=== PATIENT | female | born 1960 | race Caucasian/White ===

== ENCOUNTER 2016-07-27 10:49 | Observation (INO) | payer OTHER ==
[2016-07-27] MEDS ORDERED: ONDANSETRON ODT 4 MG TAB.RAPDIS ONE ×3 (11:15→20:46)
[2016-07-27] MEDS ORDERED: FENTANYL 250 MCG/5 ML VIAL ONE (11:17)
[2016-07-27] MEDS ORDERED: HYDROmorphone HCL 1 MG/ML SYR ONE ×2 (11:19→12:38)
--- NOTE | 2016-07-27 12:19 | CT REPORT ---
HISTORY: Fall Neck pain. COMPARISON: None. TECHNIQUE: This examination was performed using automated exposure control, adjustment of mA or kV according to patient size, and/or use of iterative reconstruction technique. Axial thin section images obtained f rom skull base through head of the clavicles. Sagittal and coronal reformat images obtained. FINDINGS: SPINE: Cervical vertebral body heights are maintained. There is no compression deformity. The alignment is maintained. There are sub no subluxation or displacement. The odontoid and ring of C1 are intact. Eth e atlantoaxial and atlantooccipital alignment are maintained. T the posterior bony elements are intac t. The facets are in alignment. There is no prevertebral soft tissue swelling. There is degenerative disease with disc space and, endplate sclerosis and marginal osteophytes at C4- 5, C5-6 and C6-7. The changes are most severe at C5-6. The central canal and neural foramina are adequately maintained. SOFT TISSUES: Is no cervical mass or gross pathologic adenopathy. IMPRESSION: 1. Degenerative disc disease at C4-5, C5-6 and C6-7. Changes are most marked at C6 5-C6. Final Electronic Signature: This report was electronically signed by Teddy Peters MD on 07/27/2016 12 :17 PM. [facility] /
[2016-07-27] MEDS ORDERED: ONDANSETRON HCL 4 MG/2 ML VIAL ONE ×2 (12:38→14:42)
--- NOTE | 2016-07-27 13:26 | CT REPORT ---
EXAM:CAT SCAN; UPPER EXTR W/O [id number] INDICATION: Trauma. Pain. COMPARISON:None TECHNIQUE:Axial images were obtained through the left elbow and were reconstructed to 2 mm. Multiplan ar reformations were created. Radiation dose reduction technique was utilized. FINDINGS: The study is limited by artifact from overlying metal in the immobilizing device. There leonel ears to be a joint effusion, with displacement of the anterior fat pad. There may be a nondisplaced f racture of the radial neck, though this is not certain. The proximal ulna and distal humerus appear i ntact. There are no bony lesions or erosions. There does appear to be mild degenerative disease of th e humeral ulnar articulation. IMPRESSION:Limited study due to artifact from overlying metal in the immobilizing device. Probable melissa int effusion, with suspicion for nondisplaced radial neck fracture. Mild degenerative disease of the humeral ulnar articulation. This report was discussed with Dr. Frederick on 07/27/2016 at 1:10 PM. He indicated he would likely repeat the CT images after replacing the immobilizer with a fiberglass cast. An addendum will be created wh en those images are obtained. Final Electronic Signature: This report was electronically signed by Jose Palomo MD on 07/27/2016 1:23 PM. [facility] /
[2016-07-27] MEDS ORDERED: FENTANYL 100 MCG/2 ML VIAL ONE (14:08)
[2016-07-27] MEDS ORDERED: LORazepam 0.5 MG TABLET ONE (15:22)
[2016-07-27] MEDS ORDERED: HOME MEDICATION LIST NEEDED 1 EA EACH MC ONE (16:28)
--- NOTE | 2016-07-27 16:58 | ER PHYSICIAN DOCUMENTATION ---
Physician Documentation [facility] Name:Jeni Garza Age:55 yrs Sex:Female :1960 Arrival Date:07/27/2016 Time:10:49 Bed6 Private MD: Krish Mendenhall Disposition: 07/27/16 16:33 Admit ordered for Praful Dixon. Preliminary diagnosis are Radial Head Fracture - ; Acute ,possible occult, Upper Extremity Pain - : Intractable, Nausea - : Intractable. - Bed requested for Medical/Surgical. - Condition is Fair. - Problem is new. - Symptoms have improved. 23 HR OBS Yes HPI: 07/27 11:00 This 55 yrs old Female presents to ER via EMS with complaints of Fall Injury. cd 11:00 Details of fall: The patient fell from an upright position, while walking, slipped on cd ice and hit her car landing on her left elbow. Onset: The symptom(s)/episode began/occurred acutely, just prior to arrival. Associated injuries: The patient sustained neck injury, pain, left elbow and anterior aspect of left shoulder, contusion, decreased range of motion, painful injury, swelling. Associated signs and symptoms: Pertinent positives: nausea, Pertinent negatives: abdominal pain, chest pain, confusion, headache, memory problems, pelvic pain, shortness of breath, vomiting, Loss of consciousness: the patient experienced no loss of consciousness. Severity of symptoms: At their worst the symptoms were severe, a " 9" out of "10", in the emergency department the symptoms are unchanged, a " 9" out of "10", Patient received 50 mcg Fentanyl IN and 50 mcg Fentanyl IV per EMS INTERNET MARKETING DIRECTOR.. The patient has not experienced similar symptoms in the past. Historical: - Allergies: No known drug Allergies; - Home Meds: 1. multivitamin oral 2. niacin 500 mg oral tab 3. Metformin Oral - PMHx: borderline diabetes; right eye trauma; left wrist injury; - PSHx: Cholecysectomy; Hysterectomy; right breat tumor removal; left carpal tunnel; left wrist tendon surgery; - Tetanus: < 10 years. - Ebola Screening: : Patient negative for fever greater than or equal to 101.5 degrees Fahrenheit, and additional compatible Ebola Virus Disease symptoms. Patient denies exposure to infectious person. Patient denies travel to an Ebola-affected area in the 21 days before illness onset. No symptoms or risks identified at this time. . - Immunization history: Pneumococcal vaccine is not up to date, Patient has never been vaccinated Flu Vaccine None. - Social history: Smoking status: Patient states was never smoker of tobacco. ROS: 13:15 ENT: Negative for injury, pain, epistaxis and discharge. cd Cardiovascular: Negative for chest pain, palpitations, edema and pleuritic pain. 13:15 Respiratory: Negative for shortness of breath, dyspnea on exertion, cough, sputum cd production, wheezing, hemoptysis and pleuritic chest pain. Back: Negative for injury, pain or muscle spasms. Skin: Negative for injury, rash, itching and discoloration. 13:15 Neuro: Negative for headache, weakness, numbness, tingling, and seizure. 13:15 Constitutional: Negative for chills, fever, poor PO intake. 13:15 Neck: Positive for pain at rest, bony tenderness. 13:15 Abdomen/GI: Positive for nausea, anorexia, Negative for abdominal pain, vomiting. 13:15 MS/extremity: Positive for injury or acute deformity, decreased range of motion, paresthesias, swelling, tenderness, of the left elbow and anterior aspect of left shoulder. 13:15 Psych: Positive for anxiety. 13:15 All other systems are negative. Exam: Head/Face: Normocephalic, atraumatic. Eyes: Pupils equal round and reactive to light, extra-ocular motions intact. Lids and lashes normal. Conjunctiva and sclera are non-icteric and not injected. Cornea within normal limits. Periorbital areas with no swelling, redness, or edema. ENT: Nares patent. No nasal discharge, no septal abnormalities noted. Tympanic membranes are normal and external auditory canals are clear. Oropharynx with no redness, swelling, or masses, exudates, or evidence of obstruction, uvula midline. Mucous membranes moist. Chest/axilla: Normal chest wall appearance and motion. Nontender with no deformity. No lesions are appreciated. Cardiovascular: Regular rate and rhythm with a normal S1 and S2. No gallops, murmurs, or rubs. Normal PMI, no JVD. No pulse deficits. Respiratory: Lungs have equal breath sounds bilaterally, clear to auscultation and percussion. No rales, rhonchi or wheezes noted. No increased work of breathing, no retractions or nasal flaring. Abdomen/GI: Soft, non-tender, with normal bowel sounds. No distension or tympany. No guarding or rebound. No evidence of tenderness throughout. Back: No spinal tenderness. No costovertebral tenderness. Full range of motion. Skin: Warm, dry with normal turgor. Normal color with no rashes, no lesions, and no evidence of cellulitis. 13:15 Neuro: Awake and alert, GCS 15, oriented to person, place, time, and situation. cd Cranial nerves II-XII grossly intact. Motor strength 5/5 in all extremities. Sensory grossly intact. Cerebellar exam normal. Normal gait. 13:15 Constitutional: The patient appears alert, awake, non-diaphoretic, non-toxic, well developed, well nourished, anxious, in obvious distress, severely distressed, pale. 13:15 Neck: C-spine: C-collar placed INTER[employer] MARKETING DIRECTOR, vertebral tenderness, that is moderate, appreciated at C2 and C3. 13:15 Musculoskeletal/extremity: Extremities: grossly normal except: noted in the anterior aspect of left shoulder: decreased ROM, tenderness, noted in the left elbow: decreased ROM, pain, swelling, no evidence of deformity, ecchymosis, ROM: limited passive range of motion due to pain, Circulation is intact in all extremities. Sensation intact. 13:15 Neuro: Orientation: is normal, Mentation: is normal, Cranial nerves: CN II- XII are normal as tested, Motor: moves all fours, Sensation: tingling, that is moderate, of the left arm. Vital Signs: 10:50 BP 159 / 90; Pulse 80; Resp 18; Temp 98.0(O); Pulse Ox 88% on R/A; Weight 74.84 kg; sj Height 5 ft. 3 in. (160.02 cm); Pain 5/10; 12:15 BP 171 / 82; Pulse 74; Pulse Ox 97% on 2 lpm NC; Pain 6/10; sj 13:00 BP 176 / 90; Pulse 69; Resp 12; Pulse Ox 93% on 1 lpm NC; Pain 3/10; sj 13:54 BP 145 / 81; Pulse 63; Resp 16; Pulse Ox 99% on 2 lpm NC; Pain 6/10; sj 14:32 BP 147 / 72; Pulse 73; Resp 14; Pulse Ox 91% on 1 lpm NC; Pain 3/10; sj 14:45 BP 132 / 58; Pulse 70; Pulse Ox 89% on R/A; sj 14:45 BP 131 / 74; Pulse 69; Resp 16; Pulse Ox 97% ; sj 10:50 Body Mass Index 29.23 (74.84 kg, 160.02 cm) sj [place] Coma Score: 13:15 Eye Response: spontaneous(4). Verbal Response: oriented(5). Motor Response: obeys cd commands(6). Total: 15. MDM: 11:00 Data interpreted: Pulse oximetry: on room air is 90 %. Interpretation: acceptable. cd 11:05 Differential diagnosis: contusion, fracture, sprain, strain, Dislocation. cd 11:15 Data reviewed: vital signs, nurses notes, EMS record, old medical records, and as a cd result, I will continue to observe the patient, order radiologic studie(s), CT scan, plain X-ray(s), administer IV fluids, NS bolus, NS maintenence, prescribe pain medication, Dilaudid, and Zofran. 11:31 Patient medically screened. cd 16:30 Counseling: I had a detailed discussion with the patient and/or guardian regarding: the cd historical points, exam findings, and any diagnostic results supporting the discharge/admit diagnosis, radiology results, the need for further work-up and treatment in the hospital. Physician consultation: Praful Dixon DO was called at 16:32, was contacted at 16:32, regarding admission, to the floor, consult, patient's condition, need to evaluate the patient as soon as possible, and will see patient in inpatient room, shortly, later today. Admission orders: after a detailed discussion of the patient's condition and case, the admit orders are written by me. 16:35 Response to treatment: the patient's symptoms have markedly improved after treatment, cd but has continued pain, nausea and anxiety and cannot maintain her O2 sat above 90% with Oxygen. She will be admitted for observation and Orthopedic Consultation., and as a result, I will admit patient. 07/27 12:20 Order name: CAT SCAN; CERVICAL [id number]; Complete Time: 17:46 EDMS 07/27 17:45 Interpretation: Normal Except: No fracture / + DDD. cd 07/27 13:26 Order name: CAT SCAN; UPPER EXTR W/O [id number]; Complete Time: 17:46 EDMS 07/27 17:46 Interpretation: See report. cd 07/27 11:05 Order name: Ice Packs; Complete Time: 11:08 tg Dispensed Medications: 10:57 Drug: Dilaudid 0.5 mg; Route: IVP; Site: left hand; sj 15:17 Follow up: Response: Pain is decreased sj 11:29 Drug: Dilaudid 0.5 mg; Route: IVP; Site: left hand; sj 15:17 Follow up: Response: Pain is decreased sj 11:30 Drug: NS 0.9% 1000 ml; Route: IV; Rate: bolus; Site: left hand; sj 15:19 Follow up: IV Status: Completed infusion; IV Intake: 1000ml sj 12:31 Drug: Zofran 4 mg; Route: IVP; Infused Over: 2 mins; Site: left hand; sj 15:16 Follow up: Response: Nausea is decreased sj 12:31 Drug: Dilaudid 0.5 mg; Route: IVP; Site: left hand; sj 15:17 Follow up: Response: Pain is decreased sj 12:57 Drug: Dilaudid 0.5 mg; Route: IVP; Site: left hand; sj 15:18 Follow up: Response: Pain is decreased sj 14:06 Drug: fentaNYL (PF) 50 mcg; Route: IVP; Site: left hand; sj 15:18 Follow up: Response: Pain is decreased sj 14:35 Drug: Zofran 4 mg; Route: IVP; Infused Over: 2 mins; Site: left hand; sj 15:17 Follow up: Response: Nausea is decreased sj 15:15 Drug: Ativan 0.5 mg; Route: PO; sj 16:33 Follow up: Response: No adverse reaction tg 15:55 Drug: Zofran 4 mg; Route: PO; tg 16:33 Follow up: Response: Nausea is decreased tg Signatures: Rohan Martines RN RN Krish Chicas MD MD cd Janzen, Sarah sj
--- NOTE | 2016-07-27 16:58 | ER NURSING DOCUMENTATION ---
Nurse's Notes [facility] Name:Jeni Garza Age:55 yrs Sex:Female :1960 Arrival Date:07/27/2016 Time:10:49 Bed6 Private MD: Diagnosis:Radial Head Fracture-; Acute ,possible occult;Upper Extremity Pain-: Intractable;Nausea-: Intractable Presentation: 07/27 10:54 Acuity: SHREYAS 3 tg 11:02 Presenting complaint:. sj 13:07 Presenting complaint: EMS states: patient slipped and fell on ice, landing on left sj elbow. Splinted, iced, fentanyl 50 mcg intranasally and 50 mcg IV, as well as Zofran 8 mg ODT. Minor movement still causing excruciating pain. Transition of care: Home. 13:07 Method Of Arrival: EMS: 410 sj Triage Assessment: 13:26 General: Appears distressed, uncomfortable, Behavior is anxious, cooperative, restless. sj Pain: Complains of pain in anterior aspect of left shoulder and left elbow Pain currently is 5 out of 10 on a pain scale. Quality of pain is described as sharp, stabbing, tingling, Alleviated by medications, cold application, Current management is with fentanyl and zofran is with splint is partially effective. Neuro: Level of Consciousness is awake, alert, obeys commands, Oriented to person, place, time, event, Tingling in left fingertips. Cardiovascular: Capillary refill < 3 seconds in left fingers. Cardiovascular: Pulses are palpable in left radial artery. Respiratory: Airway is patent Trachea midline Respiratory effort is even, unlabored, Respiratory pattern is regular. Musculoskeletal: Capillary refill other none visualized. Injury Description: Crush injury sustained to left arm. Historical: - Allergies: No known drug Allergies; - Home Meds: 1. multivitamin oral 2. niacin 500 mg oral tab 3. Metformin Oral - PMHx: borderline diabetes; right eye trauma; left wrist injury; - PSHx: Cholecysectomy; Hysterectomy; right breat tumor removal; left carpal tunnel; left wrist tendon surgery; - Tetanus: < 10 years. - Ebola Screening: : Patient negative for fever greater than or equal to 101.5 degrees Fahrenheit, and additional compatible Ebola Virus Disease symptoms. Patient denies exposure to infectious person. Patient denies travel to an Ebola-affected area in the 21 days before illness onset. No symptoms or risks identified at this time. . - Immunization history: Pneumococcal vaccine is not up to date, Patient has never been vaccinated Flu Vaccine None. - Social history: Smoking status: Patient states was never smoker of tobacco. Screenin:33 Infectious Disease Risk None. Abuse screen: Denies threats or abuse. Denies injuries sj from another. Nutritional screening: No deficits noted. Assessment: 13:33 See Triage Assessment done by same RN. Vital Signs: 10:50 BP 159 / 90; Pulse 80; Resp 18; Temp 98.0(O); Pulse Ox 88% on R/A; Weight 74.84 kg; sj Height 5 ft. 3 in. (160.02 cm); Pain 5/10; 12:15 BP 171 / 82; Pulse 74; Pulse Ox 97% on 2 lpm NC; Pain 6/10; sj 13:00 BP 176 / 90; Pulse 69; Resp 12; Pulse Ox 93% on 1 lpm NC; Pain 3/10; sj 13:54 BP 145 / 81; Pulse 63; Resp 16; Pulse Ox 99% on 2 lpm NC; Pain 6/10; sj 14:32 BP 147 / 72; Pulse 73; Resp 14; Pulse Ox 91% on 1 lpm NC; Pain 3/10; sj 14:45 BP 132 / 58; Pulse 70; Pulse Ox 89% on R/A; sj 14:45 BP 131 / 74; Pulse 69; Resp 16; Pulse Ox 97% ; sj 10:50 Body Mass Index 29.23 (74.84 kg, 160.02 cm) [place] Coma Score: 13:15 Eye Response: spontaneous(4). Verbal Response: oriented(5). Motor Response: obeys cd commands(6). Total: 15. ED Course: 10:50 Patient arrived in ED. ds 10:54 Triage completed. tg 10:55 Notified ED Physician of patient's arrival and chief complaint. Dr. Frederick notified. sj 11:00 Patient moved to radiology. hz 11:01 Yissel Eaton is Primary Nurse. sj 11:15 Patient moved back from radiology. hz 11:31 Krish Frederick MD is Attending Physician. cd 12:[address] hz 12:[address]. hz 13:33 Valuables Given to family. Patient has correct armband on for positive identification. sj Placed in gown. Bed in low position. Side rails up X2. Ice pack to injury. Warm blanket given. 13:34 Maintain field IV. Dressing intact. Site clean & dry. Gauge & site: 20 gauge, right sj hand. Oxygen Oxygen administration via nasal cannula @ 2L/min. 16:17 Praful Dixon DO is Admitting Physician. cd Administered Medications: 10:57 Drug: Dilaudid 0.5 mg; Route: IVP; Site: left hand; sj 15:17 Follow up: Response: Pain is decreased sj 11:29 Drug: Dilaudid 0.5 mg; Route: IVP; Site: left hand; sj 15:17 Follow up: Response: Pain is decreased sj 11:30 Drug: NS 0.9% 1000 ml; Route: IV; Rate: bolus; Site: left hand; sj 15:19 Follow up: IV Status: Completed infusion; IV Intake: 1000ml sj 12:31 Drug: Zofran 4 mg; Route: IVP; Infused Over: 2 mins; Site: left hand; sj 15:16 Follow up: Response: Nausea is decreased sj 12:31 Drug: Dilaudid 0.5 mg; Route: IVP; Site: left hand; sj 15:17 Follow up: Response: Pain is decreased sj 12:57 Drug: Dilaudid 0.5 mg; Route: IVP; Site: left hand; sj 15:18 Follow up: Response: Pain is decreased sj 14:06 Drug: fentaNYL (PF) 50 mcg; Route: IVP; Site: left hand; sj 15:18 Follow up: Response: Pain is decreased sj 14:35 Drug: Zofran 4 mg; Route: IVP; Infused Over: 2 mins; Site: left hand; sj 15:17 Follow up: Response: Nausea is decreased sj 15:15 Drug: Ativan 0.5 mg; Route: PO; sj 16:33 Follow up: Response: No adverse reaction tg 15:55 Drug: Zofran 4 mg; Route: PO; tg 16:33 Follow up: Response: Nausea is decreased tg Intake: 15:19 IV: 1000ml; Total: 1000ml. sj Output: 13:56 Urine: 500ml (Voided); Total: 500ml. sj Outcome: 16:33 Decision to Admit by Provider. cd 16:57 Patient left the ED. sj Signatures: Rohan Martines RN RN tg Almaz Garcia, Krish Wheeler MD MD cd Janzen, Sarah sj Zolnowski, Heather hz
[2016-07-27] MEDS ORDERED: NORMAL SALINE 1,000 ML IV SCH (17:00)
[2016-07-27 17:17] LABS: BASOPHILS 0.6 % (0.0-2.0); EOSINOPHILS 1.5 % (0.0-6.0); EOSINOPHILS# 0.1 X 10^3uL (0.0-0.4); HEMATOCRIT 42.7 % (36.0-48.0); HEMOGLOBIN 14.6 g/dL (12.0-16.0); LYMPHOCYTES 29.7 % (20.0-40.0); LYMPHOCYTES# 1.8 X 10^3uL (0.8-3.8); MEAN CELL VOLUME 85.9 fL (80.0-100.0); MEAN CORPUS. HGB CONCENTRATION 34.3 g/dL (32.0-36.0); MEAN CORPUSCULAR HEMOGLOBIN 29.4 pg (29.0-35.0); MEAN PLATELET VOLUME 6.8 fL (7.4-10.4); MONOCYTES 7.1 % (2.0-10.0); MONOCYTES# 0.4 X 10^3uL (0.2-1.0); NEUTROPHILS 61.1 % (54.0-75.0); NEUTROPHILS# 3.7 X 10^3uL (2.6-6.7); PLATELET COUNT 298 X 10^3uL (130-440); RED BLOOD COUNT 4.98 X 10^6uL (4.20-6.10); RED CELL DISTRIBUTION WIDTH 13.4 % (11.5-14.5)
[2016-07-27 17:27] LABS: BLOOD UREA NITROGEN 15 mg/dL (7-17); CALCIUM 9.7 mg/dL (8.4-10.2); CHLORIDE 108 mmol/L (98-107); CREATININE 0.8 mg/dL (0.5-1.0); EST GLOMERULAR FILTRATION RATE > 60 mL/min; GLUCOSE 95 mg/dL (70-100); POTASSIUM 3.9 mmol/L (3.5-5.1); SODIUM 140 mmol/L (137-145)
[2016-07-27] MEDS ORDERED: HYDROmorphone HCL 1 MG/ML SYR IV PRN (18:00)
[2016-07-27] MEDS ORDERED: ONDANSETRON HCL 4 MG/2 ML VIAL IV PRN ×2 (20:05→22:00)
--- NOTE | 2016-07-27 20:19 | PROGRESS NOTE: IM APSO ---
Assessment and Plan - Date of Encounter Date of Encounter: 07/27/16 (1) Elbow pain, left Status: Acute Assessment and plan: Injury is crush type injury of chest wall onto elbow onto a sidewalk. No displaced fracture seen on xray but suspicious for occult fracture. Limb splinted but pt very anxious and claustrophobic about the brace. Will get ortho consult for further treatment advice. Will make ativan available for anxiety. Pt was very nauseated in the ER, possibly due to the pain along with narcotic meds. Will try to avoid further narcotics due to possible resp supression. Will do trial of tramadol and tylenol for pain, add dilaudid if needed. Current Visit: Yes (2) Hypertension Status: Chronic Assessment and plan: BP stable at present in spite of pain. Will hold clonidine for now but add back if bp goes up. Current Visit: Yes (3) Borderline diabetes Status: Chronic Assessment and plan: Actually sounds like pt is diabetic (fasting fsbs at home 123-136, non fasting up to 219). Pt has been off metformin for a month due to thinking it caused her drowsiness. Will hold for now but anticipate need to restart soon as OP. Current Visit: Yes (4) Hyperlipidemia Status: Chronic Assessment and plan: On niacin only for lipids. Will hold for now. Current Visit: Yes (5) Right trigeminal neuralgia Status: Chronic Assessment and plan: Related to work related injury to eye. Gabapentin started 3 days ago, will cont at 300 qhs. May benefit from increasing dose but will leave at 300 for now. Current Visit: Yes - Time Spent With Patient Total time spent with greater than 50% in coordination of care (as documented) at patient's floor/unit and/or counseling patient: Greater than 35 minutes IM: PN Subjective General: anxiety, no visual disturbance, no fever, no chills HEENT: headache (Different than her usual migraines.), no visual changes Cardiovascular: no chest pain Respiratory: no cough, no SOB Gastrointestinal: nausea, no abdominal pain, no vomiting, no diarrhea, no constipation Genitourinary: no dysuria Musculoskeletal: pain (Nita left elbow.) Integumentary: no rashes, no wound Neurological: headache, numbness, tingling (Into all fingers of left hand.) IM: PN Objective Exam - I&O/Vital Signs I&O: Intake & Output 07/27/16 07/27/16 07/27/16 05:59 13:59 21:59 Weight 78.5 kg Vital Signs: Last Vital Signs Temp 36.8 C 07/27/16 16:28 Pulse 70 07/27/16 16:28 Resp 18 07/27/16 16:28 BP 136/51 07/27/16 16:28 Pulse Ox 98 07/27/16 16:28 - Constitutional General appearance: Present: mild distress. Absent: cooperative (Angered multiple times with questions during H&P, anything not related to her elbow pain.) - Head Head exam: Present: atraumatic, normal inspection, normocephalic - Eye Eye exam: Present: EOMI, PERRL. Absent: scleral icterus Pupils: Present: PERRL. Absent: irregular, unequal - ENT ENT exam: Present: mucous membranes moist, normal external ear exam - Neck Neck exam: Present: full ROM, normal inspection - Respiratory Respiratory exam: Present: chest wall tenderness (Left lower ribs without deformity.), CTAB. Absent: respiratory distress - Cardiovascular Cardiovascular exam: Present: RRR. Absent: diastolic murmur, JVD, systolic murmur - GI/Abdominal GI/Abdominal exam: Absent: mass, organomegaly, tenderness - Rectal Rectal exam: Present: deferred - Extremities Exam Extremities exam: Present: tenderness (Splint not removed but TTP any palpable areas outside the cast.) - Back Exam Back exam: Present: normal inspection. Absent: tenderness - Neurological Exam Neurological exam: Present: alert, CN II-XII intact, oriented X3, reflexes normal. Absent: motor sensory deficit (subjective numbness and tingling into all digits, including thumb, of left hand. Motor intact.) - Skin Skin exam: Present: intact - Lab Labs: Laboratory Last Values WBC 6.0 X 10^3uL (3.9-10.7) 07/27/16 11:49 RBC 4.98 X 10^6uL (4.20-6.10) 07/27/16 11:49 Hgb 14.6 g/dL (12.0-16.0) 07/27/16 11:49 Hct 42.7 % (36.0-48.0) 07/27/16 11:49 MCV 85.9 fL (80.0-100.0) 07/27/16 11:49 MCH 29.4 pg (29.0-35.0) 07/27/16 11:49 MCHC 34.3 g/dL (32.0-36.0) 07/27/16 11:49 RDW 13.4 % (11.5-14.5) 07/27/16 11:49 Plt Count 298 X 10^3uL (130-440) 07/27/16 11:49 MPV 6.8 fL (7.4-10.4) L 07/27/16 11:49 Neutrophils % 61.1 % (54.0-75.0) 07/27/16 11:49 Lymphocytes % 29.7 % (20.0-40.0) 07/27/16 11:49 Eosinophils % 1.5 % (0.0-6.0) 07/27/16 11:49 Basophils % 0.6 % (0.0-2.0) 07/27/16 11:49 Neutrophils # 3.7 X 10^3uL (2.6-6.7) 07/27/16 11:49 Lymphocytes # 1.8 X 10^3uL (0.8-3.8) 07/27/16 11:49 Monocytes 7.1 % (2.0-10.0) 07/27/16 11:49 Monocytes # 0.4 X 10^3uL (0.2-1.0) 07/27/16 11:49 Eosinophils # 0.1 X 10^3uL (0.0-0.4) 07/27/16 11:49 Basophils # 0.0 X 10^3uL (0.0-0.1) 07/27/16 11:49 Sodium 140 mmol/L (137-145) 07/27/16 11:49 Potassium 3.9 mmol/L (3.5-5.1) 07/27/16 11:49 Chloride 108 mmol/L (98-107) H 07/27/16 11:49 Carbon Dioxide 22 mmol/L (22-30) 07/27/16 11:49 BUN 15 mg/dL (7-17) D 07/27/16 11:49 Creatinine 0.8 mg/dL (0.5-1.0) 07/27/16 11:49 GFR Calculation > 60 mL/min 02/27/17 11:49 Glucose 95 mg/dL (70-100) 07/27/16 11:49 Calcium 9.7 mg/dL (8.4-10.2) 07/27/16 11:49 Quality Questions - VTE Prophylaxis Assessment VTE Present on Admission?: No Patient at risk for venous thromboembolism?: Yes VTE Risk Level: Low Risk VTE Medical Contraindication: Procedure contraindicated (Hold pending ortho eval.) (2) Hypertension Qualifiers: Hypertension type: essential hypertension Qualified Code(s): I10 - Essential (primary) hypertension
[2016-07-27] MEDS: ONDANSETRON ODT 4 MG TAB.RAPDIS PO PRN (20:38)
[2016-07-27] MEDS ORDERED: GABAPENTIN 300 MG CAPSULE PO SCH (21:00)
[2016-07-27] MEDS: traMADol HCL 50 MG TABLET PO PRN (21:52)
[2016-07-27] MEDS: LORazepam 0.5 MG TABLET PO PRN (21:52)
[2016-07-28] MEDS: ACETAMINOPHEN 325 MG TABLET PO PRN ×2 (00:45→08:20)
[2016-07-28 06:35] VITALS: BP 120/66; PULSE 72; RESP 18; TEMP 98.1; O2SAT 96
[2016-07-28] MEDS: LORazepam 0.5 MG TABLET PO PRN ×2 (06:57→12:50)
[2016-07-28] MEDS: traMADol HCL 50 MG TABLET PO PRN ×2 (06:57→12:50)
--- NOTE | 2016-07-28 07:20 | RADIOLOGY REPORT ---
Two limited views of the left shoulder on 07/27/2016 demonstrates no displaced fracture or dislocation. Limited views of the joints are unremarkable. IMPRESSION: No displaced injury is identified. If clinically indicated, further evaluation and/or follow-up may be of benefit. LIANET
--- NOTE | 2016-07-28 09:02 | DC SUMMARY: IM Note ---
Discharge Summary: IM/Peds Provider: Date of Admission: 07/27/16 Admitting Provider: DAWIT MORE DO Attending Provider: DAWIT MORE DO Discharging Provider: DAWIT MORE DO Primary Care Provider: Discharge Date: 07/28/16 Consults: 07/27/16 17:33 Orthopedic Consult [CONS] Routine Reason: 1. Acute left elbow injury with severe pain 2. Rule out left occult radial neck fracture - Diagnosis (1) Elbow pain, left Status: Acute (2) Hypertension Status: Chronic Qualifiers: Hypertension type: essential hypertension Qualified Code(s): I10 - Essential (primary) hypertension (3) Borderline diabetes Status: Chronic (4) Hyperlipidemia Status: Chronic Qualifiers: Hyperlipidemia type: mixed hyperlipidemia Qualified Code(s): E78.2 - Mixed hyperlipidemia (5) Right trigeminal neuralgia Status: Chronic - Time Spent with Patient Total time spent providing and/or coordinating discharge services: Discharge - Patient/Caregiver Discharge Instructions Activity Level: Splint in place, activities per ortho rec. Diet: Diabetic per [facility]. Follow up: RODRIGUEZProvider [MD] - 7 Days Overall discharge status: stable Print Language: MALAYSIAN Home Medications: LORazepam [Ativan] 0.5 mg PO Q6H PRN #6 tablet PRN Reason: Anxiety traMADol HCL [Ultram*] 50 - 100 mg PO Q6H PRN #30 tablet PRN Reason: Pain, Moderate Able To Take Po Ondansetron Odt [Zofran Odt*] 4 mg PO Q4H PRN #10 tab.rapdis PRN Reason: Nausea/Vomiting, Use 1st Disposition: HOME, SELF-CARE 1. Medical reason for no anticoagulation order on D/C?: Treatment not indicated 2. Medical reason for no anticoag overlap on D/C?: Treatment not indicated Discharge Summary Data - Medication History Medication History: Home Medications Gabapentin [Neurontin*] 300 mg PO HS 07/27/16 Niacin ER [Niacin] 500 mg PO HS 07/27/16 aspirin EC [Aspirin EC*] 81 mg PO DAILY 07/27/16 aspirin EC [Aspirin EC*] 325 mg PO HS 07/27/16 cloNIDine HCL [Catapres*] 0.1 mg PO BID 07/27/16 metFORMIN [Glucophage*] 500 mg PO BID 07/27/16 Inpatient Medications 07/27/16 20:05 Ondansetron HCl [Zofran] 4 mg IV Q4H PRN Ondansetron Odt [Zofran Odt] 4 mg PO Q2H PRN 07/27/16 20:07 LORazepam [Ativan] 0.5 mg PO Q6H PRN 07/27/16 20:08 traMADol HCL [Ultram] 50 - 100 mg PO Q6H PRN 07/27/16 20:09 Acetaminophen [Tylenol] 975 mg PO Q6H PRN 07/27/16 21:00 Gabapentin [Neurontin] 300 mg PO HS Procedures and tests throughout hospitalization: Completed Lab Orders 07/27/16 11:49 BASIC METABOLIC PANEL [CHEM] Stat CBC AUTO DIF, MDIF/RMOR IF IND [HEM] Stat Pending Orders 07/27/16 17:33 Orthopedic Consult [CONS] Routine 07/27/16 20:05 Ondansetron HCl [Zofran] 4 mg IV Q4H PRN Ondansetron Odt [Zofran Odt] 4 mg PO Q2H PRN 07/27/16 20:07 Advance diet as tolerated . LORazepam [Ativan] 0.5 mg PO Q6H PRN 07/27/16 20:08 traMADol HCL [Ultram] 50 - 100 mg PO Q6H PRN 07/27/16 20:09 Acetaminophen [Tylenol] 975 mg PO Q6H PRN 07/27/16 20:31 Vital Signs ROUTINE VITALS (Q4H) 07/27/16 21:00 Gabapentin [Neurontin] 300 mg PO HS 07/28/16 Breakfast Full Liquid [DIET] IM: Discharge Physical Exam - I&O/Vital Signs I&O: Intake & Output 07/27/16 07/28/16 07/28/16 21:59 05:59 13:59 Intake Total 1704 Output Total 550 Balance 1154 Weight 78.5 kg 80.5 kg Intake: IV 904 Right Wrist 904 Oral 800 Output: Emesis 550 Other: Voiding Method Toilet Vital Signs: Last Vital Signs Temp 36.7 C 07/28/16 06:34 Pulse 72 07/28/16 06:34 Resp 18 07/28/16 06:34 BP 120/66 07/28/16 06:34 Pulse Ox 96 07/28/16 06:34 Oxygen Flow Rate 2 Oxygen Delivery Method Room Air - Constitutional General appearance: Present: mild distress. Absent: cooperative (Angered multiple times with questions during H&P, anything not related to her elbow pain.) - Head Head exam: Present: atraumatic, normal inspection, normocephalic - Eye Eye exam: Present: EOMI, PERRL. Absent: scleral icterus Pupils: Present: PERRL. Absent: irregular, unequal - ENT ENT exam: Present: mucous membranes moist, normal external ear exam - Neck Neck exam: Present: full ROM, normal inspection - Respiratory Respiratory exam: Present: chest wall tenderness (Left lower ribs without deformity.), CTAB. Absent: respiratory distress - Cardiovascular Cardiovascular exam: Present: RRR. Absent: diastolic murmur, JVD, systolic murmur - GI/Abdominal GI/Abdominal exam: Absent: mass, organomegaly, tenderness - Rectal Rectal exam: Present: deferred - Extremities Exam Extremities exam: Present: tenderness (Splint not removed but TTP any palpable areas outside the cast.) - Back Exam Back exam: Present: normal inspection. Absent: tenderness - Neurological Exam Neurological exam: Present: alert, CN II-XII intact, oriented X3, reflexes normal. Absent: motor sensory deficit (subjective numbness and tingling into all digits, including thumb, of left hand. Motor intact.) - Skin Skin exam: Present: intact
[2016-07-28] MEDS: ONDANSETRON ODT 4 MG TAB.RAPDIS PO PRN ×2 (10:53→12:49)
--- NOTE | 2016-07-28 12:31 | RADIOLOGY REPORT ---
Markedly limited single lateral view of the left elbow is correlated with CT scan of the same date. There is evidence of a joint effusion with both posterior and anterior fat pads present. Slight cortical irregularity of the radial neck correlates with the CT scan findings. No other abnormality is identified. IMPRESSION: Nondisplaced right radial neck fracture. MTDD
--- NOTE | 2016-07-28 15:27 | SHORT STAY SUMMARY ---
DATE OF ADMISSION: 07/27/16 DATE OF DISCHARGE: 07/28/16 ATTENDING PHYSICIAN: Praful Dixon DO CHIEF COMPLAINT: Elbow pain after a fall on ice. HISTORY OF CHIEF COMPLAINT: Patient is a 55-year-old white female who presents via the emergency room after having slipped on ice the [facility] sidewalk. She states that she fell sideways and onto her left elbow crushing her left elbow between her chest and the sidewalk. Her complaints are left elbow and left shoulder pain with some tingling into the left fingertips and posterior aspect of the left arm. ALLERGIES: None. PAST MEDICAL HISTORY 1. History of a right eye trauma and associated migraines. 2. History of borderline diabetes. 3. Prior left wrist injury. 4. History of hypertension. 5. Right trigeminal neuralgia. 6. Hyperlipidemia. MEDICATIONS Fioricet with Codeine one 2-4 hours PRN headache, stating she has not used any for about 2 weeks. Clonidine 0.1 mg p.o. b.i.d. Gabapentin 300 mg p.o. at h.s. Niacin 500 mg at h.s. Aspirin 325 mg p.o. at h.s. Multivitamin. Metformin 500 mg p.o. b.i.d. and states that she has not been taking it for the past month or so. PAST SURGICAL HISTORY 1. Cholecystectomy about 25 years ago. 2. Total abdominal hysterectomy with bilateral salpingo-oophorectomy. 3. Right breast biopsy x3, all were benign. 4. Left carpal tunnel syndrome. 5. Left wrist tendon surgery in 2013. SOCIAL HISTORY: No tobacco use. Rare alcohol consumption. for 21 years. 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 FAMILY HISTORY: Mother who at age 73 with multiple problems including diabetes, heart disease and renal failure. Father who at age 76 with a history of diabetes, heart disease and WPW syndrome. REVIEW OF SYSTEMS: Carpal tunnel syndrome with associated radial nerve injury. Also history of depression. Other systems are negative except as noted above. PHYSICAL EXAMINATION VITAL SIGNS: Temperature 36.8, blood pressure 136/51, pulse 70, respiratory rate 18. Oxygen saturation 98% on 2 liters. Patient reported pain level of 6/ 10. GENERAL: Well-developed, well-nourished white female who is lying comfortably in bed at this time. She is alert and oriented and cooperative for this evaluation but somewhat agitated by many of the questions. HEENT: Exam reveals pupils equally reactive to light and accomodation. Extraocular muscles are intact. Sclerae are benign. Throat is symmetrical. Tongue midline with moist mucous membranes. NECK: Symmetrical without jugular venous distention, adenopathy or bruits. LUNGS: Clear to auscultation. HEART: Regular rate and rhythm is regular without murmurs, clicks or rubs. BACK: Symmetrical and nontender to palpation. There is tenderness to palpation along the left lateral chest lower rib area. ABDOMEN: Soft, nontender without masses or organomegaly. EXTREMITIES: Left upper extremity in a long-arm splint. Splint is not removed for this evaluation; however, partially exposed areas outside the splint are tender to palpation in the area of the left elbow. Lower extremities reveal no evidence of clubbing, cyanosis or edema. NEUROLOGIC: Cranial nerves 2-12 motor and sensory are grossly intact within normal limits except as associated with her left upper extremity splint. Deep tendon reflexes are +2/4 and symmetrical. There is subjective numbness with paresthesias involving palmar aspects of all 5 digits of her left hand. Normal sensation on the dorsal aspect of her left hand. Motor function appears to be intact. GENITAL/RECTAL: Deferred at this time. LABORATORY EVALUATION: CBC included a white count of 6.0, hemoglobin 14.6 with hematocrit of 42.7. Platelet count of 298,000. Blood chemistries included sodium 140, potassium 3.9, chloride 108, CO2 22, BUN 15, creatinine 0.9, glucose 95, calcium 9.7. IMAGING: X-rays obtained while patient was in the Emergency Room included a shoulder x-ray exam which showed no displaced injury. Left elbow x-ray was suggestive of joint effusion with posterior and anterior fat pads present. Some cortical irregularity of the radial neck which correlates with CT findings as well and the impression was that of a nondisplaced right radial neck fracture. A C-spine CT was obtained which was significant for multilevel degenerative disk disease most significant at C5-C6. CT scan of left upper extremity was limited due to artifact, did confirm probable joint effusion and was suspicious for nondisplaced radial neck fracture. Some degenerative changes were noted in the humeral, ulnar joint. ASSESSMENT: Assessment at the time of admission was that of a patient status post slip on ice with fall and crushing injury to the left elbow area. There is suspicion for a radial neck fracture which is nondisplaced. After attempts at getting pain under control in the Emergency Room, it was elected to admit the patient to the floor for observation for further pain management, control of nausea and orthopedic evaluation. HOSPITAL COURSE: The patient was admitted to the floor for observation with left upper extremity long-arm splint in place. Patient continued to be somewhat nauseated through the first night in the hospital. This was mostly controlled with Zofran, but did require significantly higher doses. Narcotics were avoided for pain management due to her relative hypoxemia as well as nausea, which was felt to be due to narcotics as well as for pain. She did get fairly adequate control of her pain using oral Tramadol along with Acetaminophen. Nausea was fairly well controlled on the floor with Zofran. After a restful night, the patient was in a much better mood and had much better control of her symptoms on the morning prior to discharge. She did require Ativan for anxiety and also states that it helped her sleep fairly well. She has been discharged home with anticipated follow up in [address] Martínez, after evaluation on the floor, has given clearance for discharge with follow up in his office in 1 week. Would also anticipate follow up at [facility] in approximately 1 week or sooner as needed. She will continue her usual outpatient medications as listed above, in addition, prescriptions were given for Tramadol, Zofran and Ativan. DISCHARGE DIAGNOSES 1. Left elbow pain, probable radial neck fracture, nondisplaced. 2. Hypertension. 3. Borderline diabetes. 4. Right trigeminal neuralgia. 5. Hyperlipidemia. MTDD
--- NOTE | 2016-07-29 09:56 | CONSULTATION ---
DATE OF SURGERY: 07/28/16 PROMOTIONS PRODUCER: Kameron Martínez DO HISTORY OF PRESENT ILLNESS: Patient is a 55-year-old female that was seen and examined on the hospital floor after admission through the emergency room complaining of left elbow pain. The patient fell while getting into her vehicle in a parking lot at the [facility] in [facility]. She states that she fell sideways on her elbow, landing on her left elbow, crushing her elbow between her chest and the sidewalk. She complains of some pain and tingling in her arm and fingertips. PAST MEDICAL HISTORY 1. Right eye trauma with associated migraines. 2. Borderline diabetes. 3. Prior wrist injury. 4. Hypertension. 5. Trigeminal neuralgia. 6. Hyperlipidemia. PAST SURGICAL HISTORY 1. Cholecystectomy. 2. Total abdominal hysterectomy with bilateral salpingo-oophorectomy. 3. Right breast biopsy. 4. Left carpal tunnel syndrome. 5. Left wrist tendon injury. MEDICATIONS Codeine. Clonidine. Gabapentin. Niacin. Aspirin. Multivitamin. Metformin. SOCIAL HISTORY: No smoking. Rare alcohol consumption. 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 PHYSICAL EXAMINATION LEFT ELBOW: Tenderness to palpation both medially and laterally with positive pain with range of motion. Her peripheral neurovascular status is intact with normal sensation and adequate perfusion. There is pain with range of motion in the elbow. IMAGING: CT scan of the left elbow demonstrates no fracture or dislocation, however, there appears to be a fat pad sign or fluid in the joint. ASSESSMENT: Left elbow contusion. PLAN: Patient to maintain a fiberglass splint at 90 degrees wrapped loosely with an Srinivas bandage. Patient is encouraged to keep her arm in a sling when ambulating and to keep her arm elevated above heart level while lying down or resting. The patient should use ice and oral analgesia. I would like to see her back in my office in a few days, and we will take off the posterior splint and transition her into a sling only and work on her range of motion and strength. We will need to follow up with x-rays after a couple of weeks to see if the patient did have any nondisplaced fractures. LIANET
== END 2016-07-28 09:07 | disposition home or self-care (01) ==
LOC: ER 10:49 → IN 16:36
PROVIDERS: ADMIT Family Medicine; ATTEND Family Medicine
DX: M25.522 Pain in left elbow (principal); I10 Essential (primary) hypertension; E78.5 Hyperlipidemia, unspecified; R73.03 Prediabetes; G50.0 Trigeminal neuralgia; Z79.899 Other long term (current) drug therapy
CPT/HCPCS: 72125; 73200; 80048; 85025; 96361; 96374; 96375; 96376; 99285; A0425; A0427; G0378; J1170; J2405; J7030